=== PATIENT | female | born 1990 | race African-American/Black ===

== ENCOUNTER 2018-10-23 10:14 | Emergency (ER) | payer OTHER ==
[~2018-10-23] VITALS: Ht 170.2 cm; Wt 108.9 kg
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
--- OUTSIDE RECORDS SUMMARY | 2018-10-23 10:16 | XMS REPORT | Clinical Summary ---
Author Author Hiram Mosque Organization Hiram Mosque Address Unknown Phone Unavailable Care Team Providers Care Rn Clinical Trials Name Role Phone Asked, No Pcp PCP Unavailable Allergies No Known Allergies Medications End Date Status Medication Sig Dispensed Refills Start Date Active Take 1 tablet 0 vit,[id number] 29 by mouth mg iron- 1 mg tablet per daily. tablet 06/25/2018 Discontinued ferrous sulfate 325 (65 Take 325 mg 0 FE) MG tablet by mouth daily with breakfast. 09/15/2018 doxycycline (VIBRA-TABS) Take 1 tablet 28 tablet 0 100 MG tablet (100 mg 8 total) by mouth 2 (two) times a day for 14 days. Active Problems Problem Noted Date Iron deficiency anemia due to chronic blood loss 07/02/2018 Menorrhagia with irregular cycle 07/02/2018 Obesity (BMI 35.0-39.9 without comorbidity) 05/22/2017 Encounters Care Team Description Date Type Specialty Christin Chamberlain MD IUD check up (Primary Dx) 10/13/2018 Office Visit Obstetrics and Gynecology Viviana Huynh MA 09/02/2018 Telephone Obstetrics and Gynecology Fortunato Sosa MD Postoperative examination (Primary Dx); Encounter for IUD insertion 09/01/2018 Office Visit Obstetrics and Gynecology Shirlene Chavez RN 08/25/2018 Telephone Obstetrics and Gynecology Shirlene Chavez RN 08/25/2018 Telephone Obstetrics and Gynecology Dunia Davenport RN 08/24/2018 Telephone Obstetrics and Gynecology Issac Sumner MD 08/18/2018 Anesthesia General Surgery Event Fortunato Sosa MD HYSTEROSCOPY, D&C W/ MYOSURE 08/18/2018 Surgery General Surgery Fortunato Sosa MD 08/18/2018 Hospital General Surgery Encounter Fortunato Sosa MD No Show 08/17/2018 Pre-Admit Pre-Admission Testing Testing Appointment Fortunato Sosa MD Bulky or enlarged uterus (Primary Dx); Thickened endometrium; Menorrhagia with irregular cycle; Preoperative exam for gynecologic surgery 08/17/2018 Office Visit Obstetrics and Gynecology Alfredo Perez MD Other iron deficiency anemia (Primary Dx) 08/17/2018 Transcribe Oncology Orders Penelope Dalal MA 08/12/2018 Telephone Obstetrics and Gynecology Alfredo Perez MD Iron deficiency anemia, unspecified iron deficiency anemia type (Primary Dx) 08/11/2018 Transcribe Oncology Orders Dunia Davenport RN 08/11/2018 Prep for Obstetrics and Gynecology Surgery Alfredo Perez MD Iron deficiency anemia due to chronic blood loss (Primary Dx); Menorrhagia with irregular cycle 07/24/2018 Infusion Oncology Alfredo Perez MD 07/21/2018 Orders Only Oncology Fortunato Sosa MD 07/09/2018 Telephone Obstetrics and Gynecology Fortunato Sosa MD 07/09/2018 Telephone Obstetrics and Gynecology Alfredo Perez MD Iron deficiency anemia due to chronic blood loss (Primary Dx); Menorrhagia with irregular cycle 07/06/2018 Infusion Oncology Matthew Lara RN 07/03/2018 Orders Only Oncology Alfredo Perez MD Iron deficiency anemia due to chronic blood loss (Primary Dx); Family history of anemia; Menorrhagia with irregular cycle 07/02/2018 Office Visit Oncology Fortunato Sosa MD Thickened endometrium (Primary Dx); Enlarged uterus; PCOS (polycystic ovarian syndrome); Irregular menses; Amenorrhea; Severe anemia 07/01/2018 Office Visit Obstetrics and Gynecology Shirlene Chavez RN Anemia, unspecified type (Primary Dx) 07/01/2018 Telephone Obstetrics and Gynecology Fortunato Sosa MD Irregular menses; PCOS (polycystic ovarian syndrome) 06/30/2018 Ancillary Obstetrics and Gynecology Procedure Penelope Dalal MA Well woman exam with routine gynecological exam (Primary Dx); Irregular menses; PCOS (polycystic ovarian syndrome) 06/30/2018 Telephone Obstetrics and Gynecology Fortunato Sosa MD Well woman exam (Primary Dx); Elevated testosterone level in female; Class 2 obesity without serious comorbidity with body mass index (BMI) of 38.0 to 38.9 in adult, unspecified obesity type; Screening for venereal disease (VD); Irregular menses; PCOS (polycystic ovarian syndrome); Amenorrhea; Encounter for IUD insertion 06/25/2018 Office Visit Obstetrics and Gynecology after 10/22/2017 Family History Medical History Relation Name Comments Diabetes Maternal Grandfather Stroke Maternal Grandfather Glaucoma Paternal Grandfather Relation Name Status Comments Father Alive Maternal Grandfather Maternal Grandmother Alive Mother Alive Paternal Grandfather Alive Paternal Grandmother Alive Social History Date Tobacco Use Types Packs/Day Years Used Never Smoker Smokeless Tobacco: Never Used Alcohol Use Drinks/Week oz/Week Comments Yes Social Sex Assigned at Date Recorded Not on file Industry Job Start Date Occupation Not on file Not on file Not on file Travel End Travel History Travel Start No recent travel history available. Last Filed Vital Signs Time Taken Vital Sign Reading 10/13/2018 9:41 AM [employer] Blood Pressure 116/73 10/13/2018 9:41 AM [employer] Pulse 75 08/18/2018 11:14 AM CDT Temperature 36.3 C (97.4 F) 08/18/2018 12:06 PM CDT Respiratory Rate 18 08/18/2018 12:06 PM CDT Oxygen Saturation 100% - Inhaled Oxygen - Concentration 10/13/2018 9:41 AM [employer] Weight 111 kg (244 lb 9.6 oz) 10/13/2018 9:41 AM [employer] Height 170.2 cm (5' 7") 10/13/2018 9:41 AM [employer] Body Mass Index 38.31 Plan of Treatment Health Maintenance Due Date Last Done Comments INFLUENZA VACCINE 06/24/2018 CERVICAL CANCER SCREENING 06/25/2021 06/25/2018, 05/07/2017 HEPATITIS B VACCINES Aged Out No longer eligible based on patient's age to complete this topic IPV VACCINES Aged Out No longer eligible based on patient's age to complete this topic MENINGOCOCCAL VACCINE Aged Out No longer eligible based on patient's age to complete this topic Procedures Comments Procedure Name Priority Date/Time Associated Diagnosis POC , URINE Routine 09/01/2018 Encounter for IUD 4:13 PM CDT insertion CHG ULTRASONIC GUIDANCE, Routine 09/01/2018 Encounter for IUD INTRAOPERATIVE 3:15 PM CDT insertion MN INSERT INTRAUTERINE Routine 09/01/2018 Encounter for IUD DEVICE 3:15 PM CDT insertion CBC WITH PLATELET AND Routine 08/19/2018 Other iron deficiency DIFFERENTIAL 4:44 PM CDT anemia SURGICAL PATHOLOGY Routine 08/18/2018 REQUEST 10:19 AM CDT MN AN ELECTIVE Routine 08/18/2018 SUPRAGLOTTIC AIRWAY 9:54 AM CDT Procedure Note - Lindy Chou CRNA - 08/18/2018 9:54 AM CDT Airway Date/Time: 08/18/2018 9:43 AM Performed by: LINDY CHOU Authorized by: ISSAC SUMNER Location: OR Urgency: Elective Anesthesio logist: ISSAC SUMNER Resident/C RNA/AA: LINDY CHOU Performed by: resident/C RNA and resident/C RNA/AA Preoxygena sang with 100% O2: Yes C-spine Precaution s Maintained Throughout : Yes Mask Ventilatio n: Not attempted Final Airway Type: Supraglott ic airway Final LMA: Unique LMA Size: 4 Number of Attempts at Approach: 1 Teeth intact, atraumatic intubation HYSTEROSCOPY, WITH 08/18/2018 MENORRHAGIA DILATION AND CURETTAGE OF 8:55 AM CDT N92.0 UTERUS Special Needs Use the Myosure system. Rep Magen Connolly is aware of the case. Rep # [id number] REVIEW Routine 08/17/2018 4:20 PM CDT ESTIMATED GFR Routine 08/17/2018 4:20 PM CDT HCG QUALITATIVE, SERUM Routine 08/17/2018 SCREEN 4:20 PM CDT COMPREHENSIVE METABOLIC Routine 08/17/2018 PANEL 4:20 PM CDT HC COMPLETE BLD COUNT Routine 08/17/2018 W/AUTO DIFF 4:20 PM CDT HEMOGLOBINOPATHY Routine 07/01/2018 EVALUATION (RFLX) 1:34 PM CDT HEMOGLOBINOPATHY INDICES Routine 07/01/2018 1:34 PM CDT FOLATE LEVEL Routine 07/01/2018 Severe anemia 1:34 PM CDT TOTAL IRON BINDING Routine 07/01/2018 Severe anemia CAPACITY 1:34 PM CDT FERRITIN LEVEL Routine 07/01/2018 Severe anemia 1:34 PM CDT US PELVIC TRANSVAGINAL Routine 06/30/2018 Irregular menses 3:25 PM CDT PCOS (polycystic ovarian syndrome) CBC WITH PLATELET AND Routine 06/30/2018 Well woman exam with DIFFERENTIAL 2:57 PM CDT routine gynecological exam Irregular menses PCOS (polycystic ovarian syndrome) SEX HORMONE BINDING Routine 06/25/2018 GLOBULIN 12:37 PM CDT TESTOSTERONE LEVEL, FREE Routine 06/25/2018 AND TOTAL, MALE 12:37 PM CDT HIV 1/2 ANTIGEN/ANTIBODY, Routine 06/25/2018 FOURTH GENERATION W/RFL 12:37 PM CDT (REFLEX [facility]) THYROID STIMULATING Routine 06/25/2018 HORMONE 12:37 PM CDT THYROID PANEL Routine 06/25/2018 12:37 PM CDT RPR TITER WITH REFLEX TO Routine 06/25/2018 Well woman exam CONFIRMATION 12:37 PM CDT Screening for venereal disease (VD) HEPATITIS C ANTIBODY Routine 06/25/2018 Well woman exam 12:37 PM CDT Screening for venereal disease (VD) HEPATITIS B SURFACE Routine 06/25/2018 Well woman exam ANTIGEN 12:37 PM CDT Screening for venereal disease (VD) COMPREHENSIVE METABOLIC Routine 06/25/2018 Well woman exam PANEL 12:37 PM CDT CBC WITH PLATELET AND Routine 06/25/2018 Well woman exam DIFFERENTIAL 12:37 PM CDT POC , URINE Routine 06/25/2018 Irregular menses 12:13 PM CDT THINPREP TIS PAP REFLEX Routine 06/25/2018 HPV MRNA E6/E7 11:54 AM CDT CHLAMYDIA/N. GONORRHOEAE Routine 06/25/2018 Well woman exam RNA, TMA 11:54 AM CDT Screening for venereal disease (VD) PAP W/AGE BASED SCREENING Routine 06/25/2018 Well woman exam PROTOCOLS 11:54 AM CDT after 10/22/2017 Results * POC , urine (09/01/2018 4:13 PM CDT) Only the most recent of 2 results within the time period is included. test urine, POC Negative QC done Yes Specimen Urine * IUD removal/insertion (09/01/2018 3:15 PM CDT) Narrative Performed At Fortunato Sosa MD 09/02/20182:43 PM IUD removal/insertion Date/Time: 09/02/2018 2:20 PM Performed by: FORTUNATO SOSA Authorized by: FORTUNATO SOSA Consent: Consent obtained:Written Consent given by:Patient Procedure risks and benefits discussed: yes Patient questions answered: yes Patient agrees, verbalizes understanding, and wants to proceed: yes Educational handouts given: yes Instructions and paperwork completed: yes Procedure: Procedure type: IUD insertion Procedure Details: Ultrasound Guided? yes Cervix cleaned and prepped: yes Pelvic exam performed: yes Negative GC/chlamydia test: yes Negative urine test: yes Negative serum test: no Speculum placed in vagina: yes Tenaculum applied to cervix: yes IUD inserted with no complications: yes IUD type:1 Device levonorgestrel 14 mcg/24 hour (3 years) IUD Patient Supplied: Strings trimmed: yes String length (cm):2.5 Uterus sounded to confirm IUD placement: no Uterus sound depth (cm):7 Post-procedure: Patient tolerated procedure well: yes Patient will follow up in 4-8 weeks: yes Patient instructed on self-string check: yes * CBC with platelet and differential (08/19/2018 4:44 PM CDT) Only the most recent of 4 results within the time period is included. WBC 13.3 (H) 3.4 - 10.8 x10E3/uL [facility] RBC 4.49 3.77 - 5.28 x10E6/uL [facility] HGB 9.5 (L) 11.1 - 15.9 g/dL [facility] HCT 31.5 (L) 34.0 - 46.6 % [facility] MCV 70 (L) 79 - 97 fL [facility] MCH 21.2 (L) 26.6 - 33.0 pg [facility] MCHC 30.2 (L) 31.5 - 35.7 g/dL [facility] Platelet count 456 (H) 150 - 379 x10E3/uL [facility] Neutrophils 73 Not Estab. % [facility] Lymphocytes 21 Not Estab. % [facility] Monocytes 6 Not Estab. % [facility] Eosinophils 0 Not Estab. % [facility] Basophils 0 Not Estab. % [facility] Neutrophils, absolute 9.7 (H) 1.4 - 7.0 x10E3/uL [facility] Lymphocytes, absolute 2.8 0.7 - 3.1 x10E3/uL [facility] Monocytes, absolute 0.8 0.1 - 0.9 x10E3/uL [facility] Eosinophils, absolute 0.0 0.0 - 0.4 x10E3/uL [facility] Basophils, absolute 0.0 0.0 - 0.2 x10E3/uL [facility] Immature granulocytes 0 Not Estab. % [facility] Immature grans (abs) 0.0 0.0 - 0.1 x10E3/uL [facility] Hematology comments: Note:Comment: Verified by [facility] microscopic examination. Specimen Blood Narrative Performed At Performed at:01 - [facility] [address] [place], [id number] Color Specialist: Eliecer Roy MD, Phone:[phone] Performing Organization Address City/State/Zipcode Phone Number [facility] * Surgical pathology request (08/18/2018 10:19 AM CDT) [facility] DEPARTMENT OF PATHOLOGY AND GENOMIC MEDICINE Surgical pathology report See link below for PDF Lab [facility] DEPARTMENT OF Report PATHOLOGY AND GENOMIC MEDICINE Result status This is Final Report for [facility] DEPARTMENT OF [id number] PATHOLOGY AND GENOMIC MEDICINE Performing Organization Address [facility] Phone Number [address] [place] [address] PATHOLOGY AND GENOMIC MEDICINE * Smear review (08/17/2018 4:20 PM CDT) Platelet slide review Mallory adequate [facility] DEPARTMENT OF PATHOLOGY AND GENOMIC MEDICINE Anisocytosis Moderate [facility] DEPARTMENT OF PATHOLOGY AND GENOMIC MEDICINE Giant platelets Occasional [facility] DEPARTMENT OF PATHOLOGY AND GENOMIC MEDICINE Elliptocytes Occasional [facility] DEPARTMENT OF PATHOLOGY AND GENOMIC MEDICINE Anisochromia Moderate [facility] DEPARTMENT OF PATHOLOGY AND GENOMIC MEDICINE Performing Organization Address [facility] Phone Number [address] [place] [address] PATHOLOGY AND GENOMIC MEDICINE * Estimated GFR (08/17/2018 4:20 PM CDT) Estimated GFR >=90 mL/min/1.[address] [facility] DEPARTMENT OF Comment: PATHOLOGY AND CatergoryUnitsInte GENOMIC MEDICINE rpretation G1 >=90 Normal or high G2 60-89Mildly decreased [id number] Mildly to moderately decreased [id number] Moderately to severely decreased G4 15-29Severely decreased G5 <15Kidney failure The eGFR was calculated using the Chronic Kidney Disease Epidemiology Collaboration (CKD-EPI) equation. Interpretation is based on recommendations of the National Kidney Foundation-Kidney Disease Outcomes Quality Initiative (NKF-KDOQI) published in 2014. Specimen Plasma specimen Performing Organization Address [facility] Cent[facility]ode Phone Number [address] [place] [address] PATHOLOGY AND GENOMIC MEDICINE * hCG qualitative, serum screen (08/17/2018 4:20 PM CDT) hCG qualitative, serum Negative [facility] DEPARTMENT OF PATHOLOGY AND GENOMIC MEDICINE Specimen Blood Performing Organization Address City/[facility] Cent[facility]ode Phone Number [address] [place] [address] PATHOLOGY AND GENOMIC MEDICINE * Comprehensive metabolic panel (08/17/2018 4:20 PM CDT) Only the most recent of 2 results within the time period is included. Sodium 140 135 - 148 mEq/L [facility] DEPARTMENT OF PATHOLOGY AND GENOMIC MEDICINE Potassium 3.6 3.5 - 5.0 mEq/L [facility] DEPARTMENT OF PATHOLOGY AND GENOMIC MEDICINE Chloride 103 98 - 112 mEq/L [facility] DEPARTMENT OF PATHOLOGY AND GENOMIC MEDICINE CO2 27 24 - 31 mEq/L [facility] DEPARTMENT OF PATHOLOGY AND GENOMIC MEDICINE Anion gap 10@ANIO 7 - 15 mEq/L [facility] DEPARTMENT OF PATHOLOGY AND GENOMIC MEDICINE BUN 18 6 - 20 mg/dL [facility] DEPARTMENT OF PATHOLOGY AND GENOMIC MEDICINE Creatinine 0.80 0.50 - 0.90 mg/dL [facility] DEPARTMENT OF PATHOLOGY AND GENOMIC MEDICINE Glucose 87 65 - 99 mg/dL [facility] DEPARTMENT OF PATHOLOGY AND GENOMIC MEDICINE Calcium 9.5 8.3 - 10.2 mg/dL [facility] DEPARTMENT OF PATHOLOGY AND GENOMIC MEDICINE Protein 7.6 6.3 - 8.3 g/dL [facility] DEPARTMENT OF Comment: PATHOLOGY AND Victor GENOMIC MEDICINE 4.6-7.0 g/dL 1 week 4.4-7.6 g/dL 7 months-1year 5.1-7.3 g/dL 1-2 years5.6-7 .5 g/dL >3 years6.0-8 .0 g/dL 18-150 6.3-8.3 g/dL Albumin 4.3 3.5 - 5.0 g/dL [facility] DEPARTMENT OF PATHOLOGY AND GENOMIC MEDICINE A/G ratio 1.3 0.7 - 3.8 [facility] DEPARTMENT OF PATHOLOGY AND GENOMIC MEDICINE Alkaline phosphatase 63 35 - 104 U/L [facility] DEPARTMENT OF PATHOLOGY AND GENOMIC MEDICINE AST 21 10 - 35 U/L [facility] DEPARTMENT OF PATHOLOGY AND GENOMIC MEDICINE ALT 22 5 - 50 U/L [facility] DEPARTMENT OF PATHOLOGY AND GENOMIC MEDICINE Total bilirubin 0.2 0.0 - 1.2 mg/dL [facility] DEPARTMENT OF PATHOLOGY AND GENOMIC MEDICINE Specimen Plasma specimen Performing Organization Address City/State/Zipcode Phone Number [facility] [address] [place] [address] PATHOLOGY AND GENOMIC MEDICINE * Hemoglobinopathy evaluation (07/01/2018 1:34 PM CDT) Hemoglobin A 98.4 >96.0 % [facility] Hemoglobin F <1.0 <2.0 % [facility] Hemoglobin A2 1.6 (L) 1.8 - 3.5 % [facility] Interpretation Comment: [facility] Normal pattern with decreased [facility] HB A2. The latter finding and II low MCV suggest the possibilities of iron-deficiency and Alpha-Thalassemia trait. Resulting Agency Comment Performing Organization Information: Site ID: [id number] Name: [facility] Address: [address] [place] [phone] Director: Dr. Lonnie Gaspar Performing Organization Address [facility] Cent[facility]ode Phone Number [facility] [address] [place] [id number] [place] [address] II * Hemoglobinopathy indices (07/01/2018 1:34 PM CDT) RBC 4.91 3.80 - 5.10 Million/uL [facility] II HGB 7.0 (L) 11.7 - 15.5 g/dL [facility] Comment: [facility] Verified by repeat analysis. II HCT 28.1 (L) 35.0 - 45.0 % [facility] MCV 57.2 (L) 80.0 - 100.0 fL [facility] MCH Comment: MCH=14.3 27.0 - 33.0 pg [facility] II RDW 22.2 (H) 11.0 - 15.0 % [facility] Resulting Agency Comment Performing Organization Information: Site ID: [id number] Name: [facility] Address: [address] [place] [phone] Director: Dr. Lonnie Gaspar Performing Organization Address [facility] Centercode Phone Number [facility] [address] [phone] [place] [address] II * Total iron binding capacity (07/01/2018 1:34 PM CDT) Iron level 24 (L) 40 - 190 mcg/dL [facility] Iron binding capacity 453 (H) 250 - 450 mcg/dL (calc) [facility] Iron saturation 5 (L) 11 - 50 % (calc) [facility] [place] [facility] Specimen Blood Resulting Agency Comment Performing Organization Information: Site ID: [id number] Name: [facility] Address: [address] [place] [address] Director: Una Ryder Performing Organization Address City/State/Zipcode Phone Number [facility] [place] [address] [place] [address] * Folate level (07/01/2018 1:34 PM CDT) Folate 7.8 ng/mL [facility] Comment: [facility] Reference Range Low: <3.4 Borderline:3.4-5.4 Normal:>5.4 Specimen Blood Resulting Agency Comment Performing Organization Information: Site ID: [place] Name: [facility] Address: [address] [place], [place] [phone] Director: Una Ryder Performing Organization Address [facility] [place] [address] * Ferritin level (07/01/2018 1:34 PM CDT) Ferritin level <1 (L) 10 - 154 ng/mL [facility] [place] Specimen Blood Resulting Agency Comment Performing Organization Information: Site ID: [place] Name: [facility] Address: [address] [place] [phone] Director: Una Ryder Performing Organization Address [facility] [place] [address] * US Pelvic Transvaginal (06/30/2018 3:25 PM CDT) Narrative Performed At [facility] Uterus: Enlarged uterus; 11cm. Endometrium: Thickened endometrium. 2.3cm Right Ovary: 3.5cm Left Ovary: 4.7cm Bilateral adnexa normal. Performing Organization Address [facility] Phone Number [facility] [address] [place] [address] * HIV 1/2 ANTIGEN/ANTIBODY, FOURTH GENERATION W/RFL (REFLEX [facility]) (06/25/2018 12:37 PM CDT) HIV AG/AB 4th gen NON-REACTIVE NON-REACTIVE [facility] Comment: [facility] HIV-1 antigen and HIV-1/HIV-2 antibodies were not detected. There is no laboratory evidence of HIV infection. PLEASE NOTE: This information has been disclosed to you from records whose confidentiality may be protected by state law.If your state requires such protection, then the state law prohibits you from making any further disclosure of the information without the specific written consent of the person to whom it pertains, or as otherwise permitted by law. A general authorization for the release of medical or other information is NOT sufficient for this purpose. For additional information please refer to http://education.[employer].CashSentinel/faq/RTR753 (This link is being provided for informational/ educational purposes only.) The performance of this assay has not been clinically validated in patients less than 2 years old. Resulting Agency Comment Performing Organization Information: Site ID: [facility] Name: [facility] Address: [address] [place] [phone] Director: Una Ryder Performing Organization Address [facility] [place] [place] [address] * RPR titer with reflex to confirmation (06/25/2018 12:37 PM CDT) RPR (dx) w/refl titer and NON-REACTIVE NON-REACTIVE [facility] confirmatory testing [facility] Specimen Blood Resulting Agency Comment Performing Organization Information: Site ID: [facility] Name: [facility] Address: [address] [place] [phone] Director: Una Ryder Performing Organization Address [facility] [place] [address] * Human sex hormone binding globulin (06/25/2018 12:37 PM CDT) Sex hormone binding 36 17 - 124 nmol/L [facility] globulin Comment: LUZ SUMNER Darnell StagesMale (nmol/L) Female (nmol/L) (7-17 Years) Darnell I4 [id number] 7-166 Darnell II 23-168 25-129 Darnell III23- [id number]- 129 Darnell IV 21-79 30-86 Darnell V 9-49 15-130 Resulting Agency Comment Performing Organization Information: Site ID: [id number] Name: [facility] Address: [address] [place] [address] Director: Nilson Mendoza M.D., Ph.D Performing Organization Address City/[facility] Cent[facility]ode Phone Number [facility] [address] [place] [address] [place] * Hepatitis C antibody (06/25/2018 12:37 PM CDT) Hepatitis C Ab NON-REACTIVE NON-REACTIVE [facility] Signal/cutoff 0.06 <1.00 [facility] Specimen Blood Resulting Agency Comment Performing Organization Information: Site ID: [place] Name: [facility] Address: [address] [place] [phone] Director: Una Ryder Performing Organization Address [facility] [place] [address] * Thyroid Panel (06/25/2018 12:37 PM CDT) T3 uptake 30 22 - 35 % [facility] T4 7.9 4.5 - 12.0 mcg/dL [facility] Free T4 index 2.4 1.4 - 3.8 [facility] Resulting Agency Comment Performing Organization Information: Site ID: A Name: [facility] Address: [address] [place] [phone] Director: Una Ryder Performing Organization Address [facility] [place] [address] * Hepatitis B surface antigen (06/25/2018 12:37 PM CDT) Hepatitis B surface Ag NON-REACTIVE NON-REACTIVE [facility] Specimen Blood Resulting Agency Comment Performing Organization Information: Site ID: A Name: [facility] Address: [address] [place] [phone] Director: Una Ryder Performing Organization Address [facility] [place] [address] * Testosterone level, free and total, male (06/25/2018 12:37 PM CDT) Testosterone, total, 52 (H) 2 - 45 ng/dL [facility] lc/ms/ms Comment: LUZ SUMNER This test was developed and its analytical performance characteristics have been determined by [facility]. It has not been cleared or approved by the US Food and Drug Administration. This assay has been validated pursuant to the CLIA regulations and is used for clinical purposes. Testosterone, free 6.1 0.1 - 6.4 pg/mL [facility] Resulting Agency Comment Performing Organization Information: Site ID: [id number] Name: [facility] Address: [address] [place] [address] Director: Nilson Mendoza M.D., Ph.D Performing Organization Address City/[facility]/Zipcode Phone Number [facility] ESCOBAR [address] [place] [address] ASHAWAY * Thyroid stimulating hormone (06/25/2018 12:37 PM CDT) TSH 3.11 mIU/L [facility] Comment: FOSTER Reference Range > or=20 Years0.40-4.50 Ranges First trimester0.26-2.66 Second trimester 0.55-2.73 Third trimester0.43-2.91 Resulting Agency Comment Performing Organization Information: Site ID: [id number] [facility] Address: [address] [place] [id number] Director: Una Ryder Performing Organization Address [facility] Cent[facility]ode Phone Number [facility] [address] [address] * PAP W/AGE BASED SCREENING PROTOCOLS (06/25/2018 11:54 AM CDT) Comment Comment: [facility] cancer and STI II screening follows ACOG guidelines(PB 168, 140, KYI126). See individual assays for performing site location. Specimen Cervical Resulting Agency Comment Performing Organization Information: Site ID: [id number] [facility] Address: [address] [place] [address] Director: Dr. Lonnie Gaspar Performing Organization Address [facility] Centercode Phone Number [phone] [address] II * CHLAMYDIA/N. GONORRHOEAE RNA, TMA (06/25/2018 11:54 AM CDT) Chlamydia trachomatis NOT DETECTED NOT DETECTED [facility] RNA [facility] Neisseria gonorrhoeae NOT DETECTED NOT DETECTED [facility] RNA, TMA FOST[facility] (Always message) Comment: [facility] This test was performed using FOSTER the APTIMA COMBO2 Assay ([employer] The analytical performance characteristics of this assay, when used to test SurePath specimens have been determined by [facility] Specimen Cervical Resulting Agency Comment Performing Organization Information: Site ID: [id number] [facility]: [facility] Address: [address] [place] [phone] Director: Una Ryder Performing Organization Address [facility] [place] [address] * THINPREP TIS PAP REFLEX HPV mRNA E6/E7 (06/25/2018 11:54 AM CDT) Clinical information None given [facility] FOSTER Date of last menstrual 05 08 18 [facility] period FOSTER Prev. pap: NONE GIVEN [facility] FOSTER Prev. bx: NONE GIVEN [facility] FOSTER Source Cervix [facility] FOSTER Statement of adequacy Comment: [facility] Satisfactory for evaluation. FOSTER Endocervical/transformation zone component present. Interpretation/result: Comment: Negative for [facility] intraepithelial lesion or FOSTER malignancy. Comment Comment: [facility] This Pap test has been FOSTER evaluated with computer assisted technology. Tip of collection device in vial Consulting Systems Engineer Comment: [facility] VXJ, CT(ASCP) FOSTER CT screening location: [place] [id number] Comment Comment: [facility] EXPLANATORY NOTE: FOSTER The Pap is a screening test for cervical cancer. It is not a diagnostic test and is subject to false negative and false positive results. It is most reliable when a satisfactory sample, regularly obtained, is submitted with relevant clinical findings and history, and when the Pap result is evaluated along with historic and current clinical information. Resulting Agency Comment Performing Organization Information: Site ID: [id number] Name: [facility] Address: [address] [place] [phone] Director: Una Ryder Performing Organization Address [facility] Centercode Phone Number RACHEAL [facility] [place] [phone] after 10/22/2017 Insurance Payer Benefit Subscriber ID Type Phone Address Plan / Group AETNA AETNA xxxxxxxxxx HMO HMO,POS,EP O, MC/EC Advance Directives Patient has advance care planning documents on file. For more information, cyndie arteaga contact: Salvador Juels [address] [place] [address]
[2018-10-23] MEDS ORDERED: KETOROLAC TROMETHAMINE 60 MG/2 ML VIAL IM ONE (11:00)
== END 2018-10-23 11:54 | disposition home or self-care (01) ==
LOC: FSED 10:14
DX: G44.89 Other headache syndrome (principal); D50.0 Iron deficiency anemia secondary to blood loss (chronic)
CPT/HCPCS: 80053; 85025; 99284; J1885